=== PATIENT | female | born 1955 | race Caucasian/White ===

== ENCOUNTER → 2016-08-23 | Outpatient (REF) | payer OTHER ==
[~2016-08-23] MED LIST: ADVI200C PO
== END ==
LOC: M LAB REF 10:11
PROVIDERS: ATTEND Physician Assistant
DX: J02.9 Acute pharyngitis, unspecified (principal)

== ENCOUNTER → 2017-03-04 | Outpatient (CLI) | payer OTHER ==
--- NOTE | 2017-03-04 15:55 | REPMRS ---
Patient History The patient states she had a clinical breast exam in Patient is postmenopausal. No known family history of cancer. Benign excisional biopsy of the right breast. Took hormonal contraceptives for 10 years. Digital Woman Screen Mammo: March 04, 2017 - Exam #: [id number] Bilateral CC and MLO view(s) were taken. Technologist: Toshia Jacobson, Technologist Prior study comparison: October 10, 2013, bilateral bilat screen digital mammo, performed at [facility] ([facility]). October 18, 2012, bilateral bilat screen digital mammo, performed at [facility] ([facility]). FINDINGS: The breast tissue is heterogeneously dense. This may lower the sensitivity of mammography. There has been no change in the appearance of the mammogram from the prior studies. There is a moderate amount of residual fibroglandular tissue which is fairly symmetric. There is no interval development of dominant mass, areas of architectural distortion, or clustered microcalcification typical of malignancy. ASSESSMENT: BI-RADS/ACR category 1 mammogram. Negative. Recommendation Routine screening mammogram in 1 year (for women over age 40). This mammogram was interpreted with the aid of an FDA-approved computer-aided dectection system. Electronically Signed By: Clive Mejia MD 03/04/17 [id number]
== END ==
LOC: M WHC 14:56
PROVIDERS: ATTEND Nurse Practitioner Women's Health
DX: Z12.31 Encounter for screening mammogram for malignant neoplasm of breast (principal); Z78.0 Asymptomatic menopausal state

== ENCOUNTER → 2017-03-04 | Outpatient (REF) | payer OTHER | LOC: M SFHCWAGY 15:13 | PROVIDERS: ATTEND Nurse Practitioner Women's Health | DX: Z12.4 Encounter for screening for malignant neoplasm of cervix (principal) ==

== ENCOUNTER → 2017-03-09 | Outpatient (REF) | payer OTHER | LOC: M SFHCWAGY 13:36 | PROVIDERS: ATTEND Nurse Practitioner Women's Health | DX: R87.619 Unspecified abnormal cytological findings in specimens from cervix uteri (principal); R87.613 High grade squamous intraepithelial lesion on cytologic smear of cervix (HGSIL) ==

== ENCOUNTER → 2017-05-07 | Outpatient (CLI) | payer OTHER | LOC: M EKG 17:41 | DX: Z01.812 Encounter for preprocedural laboratory examination (principal); M19.90 Unspecified osteoarthritis, unspecified site; Z78.0 Asymptomatic menopausal state | CPT/HCPCS: 93005 ==

== ENCOUNTER 2017-05-11 09:28 | Day surgery (SDC) | payer OTHER ==
[2017-05-11 09:58] LABS: HEMATOCRIT 44.6 % (36.0-47.0); HEMOGLOBIN 14.5 g/dl (12.0-16.0); MEAN CORPUSCULAR HEMOGLOBIN 28.5 pg (27.0-33.0); MEAN CORPUSCULAR HGB CONC 32.5 g/dl (32.0-36.5); MEAN CORPUSCULAR VOLUME 87.8 fl (80.0-96.0); PLATELET COUNT, AUTOMATED 237 10^3/uL (150-450); RED BLOOD COUNT 5.08 10^6/uL (4.00-5.40); RED CELL DISTRIBUTION WIDTH 12.4 % (11.5-14.5); WHITE BLOOD COUNT 4.7 10^3/uL (4.0-10.0)
[2017-05-11] MEDS ORDERED: LIDOCAINE 1% MDV 20ML VIAL SQ (10:00)
[2017-05-11] MEDS: LR 1,000 ML IV ×4 (10:03→22:00)
[2017-05-11] MEDS ORDERED: ROCURONIUM BROMIDE 50 MG/5 ML VIAL As Ordered ×2 (10:08→13:02)
[2017-05-11] MEDS ORDERED: PROPOFOL 200 MG/20 ML VIAL As Ordered (10:08)
[2017-05-11] MEDS ORDERED: fentaNYL 250 MCG/5 ML INJECTION (J3010) As Ordered (10:08)
[2017-05-11] MEDS ORDERED: LIDOCAINE 2% INJ 100 MG/5 ML SDV (FOR ANES.) As Ordered (10:08)
[2017-05-11] MEDS ORDERED: MIDAZOLAM INJ 2 MG/2 ML VIAL (J2250) As Ordered (10:09)
[2017-05-11] MEDS ORDERED: dexameTHASONE 4 MG/ML 1ML VIAL (J1100) As Ordered (12:06)
[2017-05-11] MEDS ORDERED: KETOROLAC 60 MG/2 ML VIAL (J1885) As Ordered (12:06)
[2017-05-11] MEDS ORDERED: ONDANSETRON 4MG/2ML VIAL (J2405) As Ordered (12:06)
[2017-05-11] MEDS ORDERED: HYDROmorphone HCL 2 MG/ML 1ML VIAL (J1170) As Ordered (12:07)
[2017-05-11] MEDS ORDERED: fentaNYL 100 MCG/2 ML INJECTION (J3010) As Ordered (12:07)
[2017-05-11] MEDS: METHYLENE BLUE 0.5% (5MG/ML) 10 ML AMP (PROVAYBLUE)(Q9968 PER 1MG) As Ordered (12:52)
[2017-05-11] MEDS ORDERED: NEOSTIGMINE 10 MG/10 ML VIAL (J2710) As Ordered (13:34)
[2017-05-11] MEDS ORDERED: GLYCOPYRROLATE INJ 0.2 MG/ML 2 ML VIAL As Ordered ×2 (13:34)
[2017-05-11] MEDS: BUPIVACAINE HCL 0.25% 30 ML VIAL As Ordered (13:46)
[2017-05-11] MEDS ORDERED: ONDANSETRON 4MG/2ML VIAL (J2405) IV ×2 (14:00→14:45)
[2017-05-11] MEDS ORDERED: PERCOCET 5MG/325MG TAB PO ×3 (14:00→14:45)
[2017-05-11] MEDS ORDERED: MORPHINE 4 MG/ML 1ML VIAL (J2270) IV (14:00)
[2017-05-11] MEDS ORDERED: fentaNYL 100 MCG/2 ML INJECTION (J3010) IV (14:45)
[2017-05-11] MEDS ORDERED: KETOROLAC 30 MG/ML VIAL (J1885) IV (18:00)
[2017-05-11] MEDS: PROMETHAZINE INJ 25 MG/ML VIAL (J2550) IV (18:03)
[2017-05-11] MEDS: DOCUSATE SODIUM 100 MG CAP PO (20:37)
[2017-05-11] MEDS: KETOROLAC 30 MG/ML VIAL (J1885) IV (20:37)
[2017-05-12] MEDS: KETOROLAC 30 MG/ML VIAL (J1885) IV ×2 (01:57→08:40)
[2017-05-12] MEDS: LR 1,000 ML IV (06:00)
[2017-05-12 07:10] LABS: BASO % 0.1 % (0.0-1.0); HEMATOCRIT 37.3 % (36.0-47.0); IMMATURE GRANULOCYTE % 0.3 % (0-3.0); LYMPH # 1.1 10^3/uL (1.5-4.5); LYMPH % 9.2 % (24.0-44.0); MEAN CORPUSCULAR HEMOGLOBIN 28.8 pg (27.0-33.0); MEAN CORPUSCULAR HGB CONC 32.7 g/dl (32.0-36.5); MEAN CORPUSCULAR VOLUME 88.2 fl (80.0-96.0); MONO # 0.6 10^3/uL (0.0-0.8); MONO % 5.4 % (0.0-5.0); PLATELET COUNT, AUTOMATED 213 10^3/uL (150-450); RED BLOOD COUNT 4.23 10^6/uL (4.00-5.40); RED CELL DISTRIBUTION WIDTH 12.5 % (11.5-14.5); WHITE BLOOD COUNT 11.7 10^3/uL (4.0-10.0)
[2017-05-12 07:13] LABS: HEMOGLOBIN 12.2 g/dl (12.0-16.0)
[2017-05-12] MEDS: DOCUSATE SODIUM 100 MG CAP PO (08:40)
== END 2017-05-12 09:15 | disposition home or self-care (01) ==
LOC: M SDC 09:28 → M OBS 15:45
DX: R87.613 High grade squamous intraepithelial lesion on cytologic smear of cervix (HGSIL) (principal); M12.9 Arthropathy, unspecified; Z98.890 Other specified postprocedural states; Z78.0 Asymptomatic menopausal state; Z98.51 Tubal ligation status; Z87.891 Personal history of nicotine dependence
CPT/HCPCS: 58571

== ENCOUNTER → 2020-10-15 | Outpatient (CLI) | payer MEDICARE, OTHER ==
[~2020-10-15] MED LIST changes: +ADVI1CAP2 PO; -ADVI200C PO; +COLA100C5 PO; +PERC5TAB12 PO
--- NOTE | 2020-10-15 16:00 | DEXAMM ---
INDICATION: M85.9 DISORDER OF BONE DENSITY AND STRUCTURE. COMPARISON: Comparison study most recently is October 18, 2012.. TECHNIQUE: Bone density was measured using dual-energy x-ray absorptionmetry (DEXA). FINDINGS: AP SPINE L1-L4 BMD 1.289 g/cm2 Young Adult T-Score 0.8 Age Matched Z-Score 2.4. LT FEMUR, TOTAL BMD 1.085 g/cm2 Young Adult T-Score 0.6 Age Matched Z-Score 1.8. LT NECK BMD 0.999 g/cm2 Young Adult T-Score -0.3 Age Matched Z-Score 1.2. RT FEMUR, TOTAL BMD 1.004 g/cm2 Young Adult T-Score 0.0 Age Matched Z-Score 1.2. RT NECK BMD 0.913 g/cm2 Young Adult T-Score -0.9 Age Matched Z-Score 0.6. IMPRESSION: There is normal bone density of the spine. There is normal bone density of the left hip. There is normal bone density of the right hip. The density of the spine has decreased 0.9% since the initial exam on May 16, 2005. The density of the spine increased 2.7% since most recent exam on October 18, 2012. The density of the left hip has decreased 3.6% since initial exam on May 16, 2005. The density of the left hip has increased 1.5% since most recent exam on October 18, 2012. The density of the right hip has decreased 8.0% since the initial exam on May 16, 2005. The density of the right hip has X decreased 1.7% since the most recent exam on October 18, 2012. FOLLOW-UP: Recommendation for the next bone density exam: 5-10 years. <Electronically signed by Aguila Dowling > 10/15/20 [id number]
--- NOTE | 2020-10-22 16:48 | REPMRS ---
Patient History The patient states she had a clinical breast exam in August 2020. Patient is postmenopausal. No known family history of cancer. Benign excisional biopsy of the right breast. Took hormonal contraceptives for 10 years. Patient states no breast complaints today. Patient has signed MRS History Sheet. Digital Woman Screen Mammo: October 15, 2020 - Exam #: [id number] Bilateral CC and MLO view(s) were taken. Technologist: Fe Tony, Technologist Prior study comparison: March 04, 2017, digital woman screen mammo performed at [facility]. October 10, 2013, bilateral bilat screen digital mammo, performed at [facility] ([facility]). FINDINGS: There are scattered fibroglandular densities. Screening. Digital screening (2D) mammography was performed bilaterally in the CC and MLO projections. Additionally, breast tomosynthesis (3D mammography) was performed bilaterally in the CC and MLO projections. Todays exam was compared to the prior exam/exams. By history, the patient has no complaints of a palpable breast abnormality or other significant breast complaints. The breasts are unchanged in size and shape. There are no vazquez-soft tissue densities or spiculated masses. There is no internal architectural distortion. There are no suspicious vazquez-calcific clusters. Skin thickening or nipple retraction is not present. IMPRESSION: BI-RADS Category 2- Benign Findings. There is no evidence of malignant alteration of the breasts. Followup examination recommended in one year. The Volpara volumetric breast density category is B, there are scattered areas of fibroglandular densities. This mammogram was read with the assistance of [email or web address],an FDA approved computer aided detection system for mammography. The lifetime Tyrer-Cuzick score is 4.7 % Negative x-ray reports should not delay surgical consultation if a dominant or clinically suspicious mass is present. Not all breast cancers can be identified by mammography. Therefore, we recommend that you continue to perform regular breast self-examination and physical examination and then promptly contact your physician of any concerns or changes. Adenosis and dense breasts may obscure an underlying neoplasm. Assessment: BI-RADS/ACR category 2 mammogram. Benign Findings. Recommendation Routine screening mammogram of both breasts in 1 year. Electronically Signed By: Eric Howard DO 10/22/20 [id number]
== END ==
LOC: M WHC 14:47
PROVIDERS: ATTEND Nurse Practitioner
DX: Z12.31 Encounter for screening mammogram for malignant neoplasm of breast (principal); M85.851 Other specified disorders of bone density and structure, right thigh

== ENCOUNTER → 2021-08-23 | Outpatient (CLI) | payer MEDICARE, OTHER ==
[~2021-08-23] MED LIST changes: +ACET-1349 PO; +ACET-861 PO
== END ==
LOC: M LABSMTC 10:43
PROVIDERS: ATTEND Surgery
DX: Z01.812 Encounter for preprocedural laboratory examination (principal); Z20.822 Contact with and (suspected) exposure to COVID-19

== ENCOUNTER 2021-08-28 10:58 | Day surgery (SDC) | payer MEDICARE ==
[~2021-08-28] VITALS: Ht 160 cm; Wt 80.7 kg
[~2021-08-28 10:58] MED LIST changes: +LIDOCAINE 2% 100MG/5ML SDV (FOR ANES.) As Ordered ONE; +NS 1,000 ML IV ONE
[2021-08-28] MEDS ORDERED: propofoL 200 MG/20 ML VIAL As Ordered ONE (11:01)
[2021-08-28 13:00] VITALS: BP 140/83
== END 2021-08-28 13:19 | disposition home or self-care (01) ==
LOC: M OPP 10:58
PROVIDERS: ATTEND Surgery
DX: Z12.11 Encounter for screening for malignant neoplasm of colon (principal); Z86.010 Personal history of colon polyps; K57.30 Diverticulosis of large intestine without perforation or abscess without bleeding; Z79.899 Other long term (current) drug therapy

== ENCOUNTER → 2021-10-23 | Outpatient (CLI) | payer MEDICARE ==
[~2021-10-23] MED LIST changes: -LIDOCAINE 2% 100MG/5ML SDV (FOR ANES.) As Ordered ONE; -NS 1,000 ML IV ONE
== END ==
LOC: M WHC 14:46
PROVIDERS: ATTEND Family Medicine
DX: Z12.31 Encounter for screening mammogram for malignant neoplasm of breast (principal)

== ENCOUNTER → 2022-10-24 | Outpatient (CLI) | payer MEDICARE | LOC: M WHC 08:50 | PROVIDERS: ATTEND Nurse Practitioner Family | DX: Z12.31 Encounter for screening mammogram for malignant neoplasm of breast (principal) ==

== ENCOUNTER → 2024-08-08 | Outpatient (CLI) | payer MEDICARE | LOC: M WHC 10:28 | PROVIDERS: ATTEND Physician Assistant | DX: Z12.31 Encounter for screening mammogram for malignant neoplasm of breast (principal); R92.333 Mammographic heterogeneous density, bilateral breasts; R22.1 Localized swelling, mass and lump, neck ==